=== PATIENT | female | born 2000 | race Caucasian/White ===

== ENCOUNTER 2018-12-29 06:11 | Emergency (ER) | payer BC ==
--- NOTE | 2018-12-29 06:15 | ER Report ---
History and Physical Time Seen By MD: 06:15 (TREVER HAIRSTON DO) HPI/ROS CHIEF COMPLAINT: Fever, general malaise, dyspnea HISTORY OF PRESENT ILLNESS: Patient is a 18-year-old female here with complaints of fever, general malaise, diagnosis of otitis media on amoxicillin. Patient also complains of sore throat, pain with swallowing, sensation of swelling in the proximal airway with associated dyspnea. Patient reports having decreased appetite, nausea now with vomiting. Patient reports having a negative flu test recently though she is presumptively being treated with Tamiflu. This morning patient reported increased swelling and pain of the throat. Patient is febrile, tachycardic at time of evaluation. REVIEW OF SYSTEMS: Constitutional: + fever, + chills. Eyes: No discharge. ENT: + sore throat, + odynophagia, + bilateral otalgia. Cardiovascular: No chest pain, no palpitations. Respiratory: No cough, + shortness of breath. Gastrointestinal: No abdominal pain, + nausea/ vomiting. Genitourinary: No hematuria. Musculoskeletal: No back pain. Skin: No rashes. Neurological: + headache. (TREVER HAIRSTON DO) Allergies: Coded Allergies: No Known Drug Allergies (Unverified , 12/29/18) Home Meds Reported Medications [ Control Oral] No Conflict Check 12/29/18 Constitutional Vital Sign - Last 24 Hours 12/29/18 12/29/18 12/29/18 12/29/18 06:11 06:15 06:17 06:30 Temp 100.7 Pulse ??? 125 Resp 18 B/P (MAP) 127/91 (103) 127/91 114/81 (92) Pulse Ox 94 O2 Delivery Room Air 12/29/18 12/29/18 12/29/18 12/29/18 06:41 06:56 07:00 07:11 Pulse 110 ? B/P (MAP) ???/??? (1665) Pulse Ox 95 12/29/18 12/29/18 12/29/18 07:26 07:30 07:41 Pulse 106 112 B/P (MAP) 113/65 (81) Pulse Ox 95 94 Intake and Output 12/28/18 12/28/18 12/29/18 15:00 23:00 07:00 Intake Total 1000 ml Balance 1000 ml (CHRYSTAL NIÑO MD) Physical Exam General Appearance: The patient is alert, has no immediate need for airway protection and no signs of toxicity. Uncomfortable appearing Eyes: Pupils equal and round no pallor or injection. ENT, Mouth: + Erythema of the posterior oropharynx, + tender cervical adenopathy Respiratory: There are no retractions, lungs are clear to auscultation. No rales or rhonchi Cardiovascular: + Sinus tachycardia Gastrointestinal: Abdomen is soft and non tender, no masses, bowel sounds normal. Neurological: No focal neurological deficits Skin: Warm and dry, no rashes. Musculoskeletal: Neck is supple + cervical tender adenopathy. Extremities are nontender, nonswollen and have full range of motion. DIFFERENTIAL DIAGNOSIS: After history and physical exam differential diagnosis was considered for adult fever including but not limited to viral syndromes i ncluding influenza, mononucleosis, pneumonia and sepsis, otitis media (TREVER HAIRSTON DO) Medical Decision Making Data Points Result Diagram: 12/29/18 0640 12/29/18 0640 Laboratory Hematology Test 12/29/18 06:40 12/29/18 06:55 Red Blood Count 5.05 M/uL (4.17-5.56) Mean Corpuscular Volume 81.9 fL (80.0-96.0) Mean Corpuscular Hemoglobin 27.2 pg (26.0-33.0) Mean Corpuscular Hemoglobin Concent 33.2 g/dL (32.0-36.0) Red Cell Distribution Width 13.9 % (11.5-14.5) Mean Platelet Volume 8.3 fL (7.2-11.1) Neutrophils (%) (Auto) 80.3 % (39.4-72.5) Lymphocytes (%) (Auto) 9.9 % (17.6-49.6) Monocytes (%) (Auto) 8.5 % (4.1-12.4) Eosinophils (%) (Auto) 1.0 % (0.4-6.7) Basophils (%) (Auto) 0.3 % (0.3-1.4) Nucleated RBC Relative Count (auto) 0.0 /100WBC Neutrophils # (Auto) 11.0 K/uL (2.0-7.4) Lymphocytes # (Auto) 1.4 K/uL (1.3-3.6) Monocytes # (Auto) 1.2 K/uL (0.3-1.0) Eosinophils # (Auto) 0.1 K/uL (0.0-0.5) Basophils # (Auto) 0.0 K/uL (0.0-0.1) Nucleated RBC Absolute Count (auto) 0.00 K/uL Sodium Level 135 mmol/L (137-145) Potassium Level 3.1 mmol/L (3.5-5.0) Chloride Level 104 mmol/L (98-107) Carbon Dioxide Level 25 mmol/L (22-31) Blood Urea Nitrogen 8 mg/dl (7-18) Creatinine 0.70 mg/dl (0.52-1.04) Glomerular Filtration Rate Calc > 60.0 Random Glucose 119 mg/dl (75-110) Calcium Level 8.4 mg/dl (8.4-10.2) Total Bilirubin 0.3 mg/dl (0.2-1.3) Aspartate Amino Transf (AST/SGOT) 18 U/L (0-35) Alanine Aminotransferase (ALT/SGPT) 27 U/L (0-56) Alkaline Phosphatase 60 U/L (0-126) Total Protein 6.8 g/dl (6.3-8.2) Albumin 3.8 g/dl (3.5-5.0) Monoscreen Negative (NEGATIVE) Urine HCG, Qualitative Negative (NEGATIVE) Chemistry Test 12/29/18 06:40 12/29/18 06:55 White Blood Count 13.6 k/uL (4.5-11.0) Red Blood Count 5.05 M/uL (4.17-5.56) Hemoglobin 13.7 g/dL (12.0-16.0) Hematocrit 41.4 % (34.0-47.0) Mean Corpuscular Volume 81.9 fL (80.0-96.0) Mean Corpuscular Hemoglobin 27.2 pg (26.0-33.0) Mean Corpuscular Hemoglobin Concent 33.2 g/dL (32.0-36.0) Red Cell Distribution Width 13.9 % (11.5-14.5) Platelet Count 220 K/uL (150-450) Mean Platelet Volume 8.3 fL (7.2-11.1) Neutrophils (%) (Auto) 80.3 % (39.4-72.5) Lymphocytes (%) (Auto) 9.9 % (17.6-49.6) Monocytes (%) (Auto) 8.5 % (4.1-12.4) Eosinophils (%) (Auto) 1.0 % (0.4-6.7) Basophils (%) (Auto) 0.3 % (0.3-1.4) Nucleated RBC Relative Count (auto) 0.0 /100WBC Neutrophils # (Auto) 11.0 K/uL (2.0-7.4) Lymphocytes # (Auto) 1.4 K/uL (1.3-3.6) Monocytes # (Auto) 1.2 K/uL (0.3-1.0) Eosinophils # (Auto) 0.1 K/uL (0.0-0.5) Basophils # (Auto) 0.0 K/uL (0.0-0.1) Nucleated RBC Absolute Count (auto) 0.00 K/uL Glomerular Filtration Rate Calc > 60.0 Calcium Level 8.4 mg/dl (8.4-10.2) Total Bilirubin 0.3 mg/dl (0.2-1.3) Aspartate Amino Transf (AST/SGOT) 18 U/L (0-35) Alanine Aminotransferase (ALT/SGPT) 27 U/L (0-56) Alkaline Phosphatase 60 U/L (0-126) Total Protein 6.8 g/dl (6.3-8.2) Albumin 3.8 g/dl (3.5-5.0) Monoscreen Negative (NEGATIVE) Urine HCG, Qualitative Negative (NEGATIVE) Urinalysis Test 12/29/18 06:55 Urine HCG, Qualitative Negative (NEGATIVE) (CHRYSTAL NIÑO MD) ED Course/Re-evaluation ED Course Patient is a 18-year-old female here with complaints of nausea, vomiting, worsening odynophagia, recent diagnosis of otitis media on amoxicillin, presumptive diagnosis of influenza on Tamiflu. Patient is otherwise healthy at baseline. Patient is febrile, tachycardic, complains of decreased appetite, mild dyspnea, throat swelling. Patient was given normal saline bolus, Toradol, Decadron, Zofran for symptom management. Patient had a previously negative influenza test, mono test was ordered as well as CBC, CMP. Chest x-ray was ordered. Patient was signed out to Dr. Chrystal Niño pending results. (TREVER HAIRSTON DO) ED Course Symptoms improved. Taking PO. Afebrile. Will d/c with steroids for 4 days. Will continue with abx. Decision to Disposition Date: Dec 29, 2018 Decision to Disposition Time: 08:28 (CHRYSTAL NIÑO MD) Depart Departure Latest Vital Signs Vital Signs Date Time Temp Pulse Resp B/P (MAP) Pulse Ox O2 Delivery O2 Flow Rate FiO2 12/29/18 07:41 112 94 12/29/18 07:30 113/65 (81) 12/29/18 06:17 100.7 18 Room Air (CHRYSTAL NIÑO MD) Impression: Primary Impression: Viral syndrome Condition: Improved Disposition: HOME OR SELF-CARE New Scripts Prednisone (PREDNISONE) 20 Mg Tablet 40 MG PO QDAY for 4 Days, #8 TAB Prov: CHRYSTAL NIÑO MD 12/29/18 Patient Instructions: Viral Syndrome (ED) TREVER HAIRSTON DO Dec 29, 2018 06:15 CHRYSTAL NIÑO MD Dec 29, 2018 08:31
[2018-12-29] MEDS ORDERED: BIRTH CONTROL ORAL (06:20)
[2018-12-29] MEDS ORDERED: NS(*) 0.9% 1000 ML BAG 1,000 ML IV ONE ×2 (06:30→07:10)
[2018-12-29] MEDS ORDERED: DEXAMETHASONE SOD PHOS 10MG/ML IVP ONE (06:30)
[2018-12-29] MEDS ORDERED: KETOROLAC 30 MG/ML VIAL IVP ONE (06:30)
[2018-12-29] MEDS ORDERED: ONDANSETRON 4 MG/2 ML VIAL IVP ONE (06:30)
[2018-12-29 06:55] LABS: PLATELET COUNT, AUTOMATED 220 K/uL (150-450)
--- NOTE | 2018-12-29 08:04 | RADIOLOGY IMAGING REPORT ---
FACILITY: [facility] [place] PATIENT NAME: Sarah Moya : 2000 MR: [id number] V: [id number] EXAM DATE: ORDERING PHYSICIAN: TREVER HAIRSTON TECHNOLOGIST: Location: [facility] Patient: Sarah Moya : 2000 Visit/Account:[id number] Date of Sevice: 12/29/2018 2 VIEWS CHEST INDICATION: Shortness of breath with flulike symptoms. COMPARISON: None available FINDINGS: The lungs are clear. No effusion or pneumothorax is seen. Heart size and mediastinal contours are nor mal. IMPRESSION: 1. No radiographic evidence of active disease. Report Dictated By: Charbel Alicea at 12/29/2018 7:57 AM Report E-Signed By: Charbel Alieca at 12/29/2018 7:59 AM WSN:[id number]
[2018-12-29] MEDS ORDERED: PRED20TA6 PO (08:29)
[2018-12-29 08:30] VITALS: BP 106/63
== END 2018-12-29 08:45 | disposition home or self-care (01) ==
LOC: ER 06:42
DX: B34.9 Viral infection, unspecified (principal)
CPT/HCPCS: 71046; 81025; 85025; 86308; 96361; 96374; 96375; 99284; J1100; J1885; J2405; J7030; 82040; 82247; 82310; 82374; 82435; 82565; 82947; 84075; 84132; 84155; 84295; 84450; 84460; 84520